=== PATIENT | female | born 1990 | race Caucasian/White ===

== ENCOUNTER → 2019-06-29 | Outpatient (CLI) | payer OTHER ==
--- NOTE | 2019-07-01 09:36 | Diagnostic Imaging Report ---
TECHNIQUE: Magnetic resonance imaging of the RIGHT Knee was performed WITHOUT intravenous contrast. COMPARISON: None. FINDINGS: Joint effusion: Trace joint effusion is present. Hoffa's fat pad is unremarkable. Menisci: The medial and lateral meniscus both appear normal. No meniscal tear is seen. Tendons and Ligaments: The ACL and the PCL are intact. The collateral ligaments are unremarkable. The iliotibial band is unremarkable. The extensor mechanism appears normal. Articular Cartilage: The articular cartilage is normal in thickness. No focal defects are seen. Bone: The bone and bone marrow are normal. IMPRESSION: Trace joint effusion. No meniscal tear. No acute ligamentous injury. Signed by: Callum Kowalski MD on 07/01/2019 9:32 AM
== END ==
LOC: MRI 13:34
PROVIDERS: ATTEND Specialist
DX: S83.221A Peripheral tear of medial meniscus, current injury, right knee, initial encounter (principal)